=== PATIENT | male | born 1965 | race Caucasian/White ===

== ENCOUNTER 2018-03-11 09:25 | Outpatient (CLI) | payer BC ==
--- NOTE | 2018-03-11 10:59 | Diagnostic Imaging Report ---
Indication: Abdominal pain and distention Technique: Nelson-scale and duplex images of the upper abdomen were obtained Comparison: none Findings: Gallbladder is unremarkable, without stones, wall thickening, nor pericholecystic fluid. Sonographic Stone's sign is negative. Common bile duct measures for mm in diameter. No intrahepatic biliary ductal dilatation. Liver demonstrates diffusely increased echogenicity, consistent with diffuse hepatocellular disease, most likely fatty change. It is somewhat enlarged. Portal vein and hepatic veins are patent. Pancreas is unremarkable. Spleen is unremarkable. Left kidney measures 11.7 cm in length. Right kidney measures 10.5 cm length. Both kidneys demonstrate normal echogenicity. There is no hydronephrosis. Small cysts are seen in the left kidney . Abdominal aorta is partially obscured by bowel gas, visualized portions are non-aneurysmal . Impression: Liver demonstrates diffusely increased echogenicity, consistent with diffuse hepatocellular disease, most likely fatty change. It is also somewhat enlarged Negative for gallstones or dilated ducts Incidental finding small left renal cysts Note nonvisualization of portions of the abdominal aorta
== END 2018-03-11 11:25 | disposition home or self-care (01) ==
LOC: ULS 09:25
DX: R10.84 Generalized abdominal pain (principal); R14.0 Abdominal distension (gaseous); N20.0 Calculus of kidney
CPT/HCPCS: 76700

== ENCOUNTER 2019-06-02 03:28 | Emergency (ER) | payer BC ==
[~2019-06-02] VITALS: Ht 170.2 cm; Wt 93.0 kg
[2019-06-02 03:41] VITALS: BP 150/94
[2019-06-02] MEDS ORDERED: ALBUTEROL2.5 MG/3 M INH (03:41)
--- NOTE | 2019-06-02 03:41 | NUR ---
ED Nurse Note: pt walked in to E/D c/o cough and congestion since last thursday. pt stated he took thera flu. pt stated today at 0300, he coughed up bright red sputum x2. pt stated he has fever of over 101 F on last thursday. pt recently came from [facility] on thursday,. pt is alert x4. VSS
[2019-06-02] MEDS ORDERED: Albuterol/Ipratropium 3ml neb HHN ONE (04:00)
[2019-06-02] MEDS ORDERED: Omnipaue 350mg/ml 100ml vial INJ PRN (04:00)
--- NOTE | 2019-06-02 04:08 | NUR ---
ED Nurse Note: blood sample taken to lab
[2019-06-02 04:16] LABS: BASOPHILS % (AUTO) 1.3 % (0.0-2.0); EOSINOPHILS % (AUTO) 1.5 % (0.0-3.0); HEMOGLOBIN 16.5 G/DL (14.2-18.0); LYMPHOCYTES % (AUTO) 22.3 % (20.0-45.0); MEAN CORPUSCULAR VOLUME 92 FL (80-99); MONOCYTES % (AUTO) 5.7 % (1.0-10.0); NEUTROPHILS % (AUTO) 69.2 % (45.0-75.0); PLATELET COUNT 267 K/UL (150-450); RED BLOOD COUNT 4.98 M/UL (4.70-6.10); RED CELL DISTRIBUTION WIDTH 10.7 % (11.6-14.8); WHITE BLOOD COUNT 11.3 K/UL (4.8-10.8)
[2019-06-02 04:27] LABS: INR 0.9 (0.9-1.1)
[2019-06-02 04:28] LABS: ANION GAP 8 mmol/L (5-15); BLOOD UREA NITROGEN 11 mg/dL (7-18); CALCIUM 9.5 MG/DL (8.5-10.1); CARBON DIOXIDE 25 MMOL/L (21-32); CHLORIDE 104 MMOL/L (98-107); CREATININE 1.1 MG/DL (0.55-1.30); POTASSIUM 4.3 MMOL/L (3.5-5.1); SODIUM 137 MMOL/L (136-145)
[2019-06-02 04:36] LABS: ALANINE AMINOTRANSFERASE 93 U/L (12-78); ALKALINE PHOSPHATASE 68 U/L (46-116); ASPARTATE AMINO TRANSFERASE 31 U/L (15-37); BILIRUBIN,TOTAL 0.4 MG/DL (0.2-1.0)
--- NOTE | 2019-06-02 04:41 | NUR ---
ED Nurse Note: left for CT
--- NOTE | 2019-06-02 05:07 | NUR ---
ED Nurse Note: back from CT
--- NOTE | 2019-06-02 05:21 | Emergency Room Report ---
History of Present Illness General Chief Complaint: Upper Respiratory Illness Source: Patient Present Illness HPI Patient is a 53-year-old male presents after increased hemoptysis. Patient had reportedly had recent travel to [place]. He states he has been smoking more than usual. He stated that he may have had some nosebleeding. He noticed some moderate amount of hemoptysis. He had some subsequent coughing. He denied any hemoptysis with subsequent evidence of coughing. He denies any severe chest pain. He has sick contacts at home with similar type symptoms. He had reportedly been having increased coughing for several weeks. He denies any fever. He thinks he may have walking pneumonia. He reports having some leg discomfort without any significant swelling. Allergies: Coded Allergies: SULFA (SULFONAMIDE ANTIBIOTICS) (Verified Allergy, Unknown, 06/02/19) Patient History Past Medical History: see triage record Reviewed Nursing Documentation: PMH: Agreed; PSxH: Agreed Nursing Documentation-PM Past Medical History: No Stated History Review of Systems All Other Systems: negative except mentioned in HPI Physical Exam Vital Signs Date Time Temp Pulse Resp B/P (MAP) Pulse Ox O2 Delivery O2 Flow Rate FiO2 06/02/19 03:32 98.2 74 16 153/100 (117) 95 Room Air 06/02/19 03:41 98 Sp02 EP Interpretation: reviewed, normal General Appearance: normal inspection, well appearing, no apparent distress, alert Head: atraumatic ENT: normal ENT inspection, hearing grossly normal, normal voice Neck: normal inspection, full range of motion, supple, no bony tend Respiratory: normal inspection, normal breath sounds, no respiratory distress, no retraction, wheezing Cardiovascular #1: regular rate, rhythm, no edema Gastrointestinal: normal inspection, normal bowel sounds, non tender, soft, no guarding, no hernia Genitourinary: no CVA tenderness Musculoskeletal: normal inspection, back normal, normal range of motion Neurologic: normal inspection, alert, oriented x3, responsive, instrument calibrator III-XII nml as tested, motor strength/tone normal, speech normal Psychiatric: normal inspection, judgement/insight normal, mood/affect normal Skin: no rash, other - nasal telangectasia Medical Decision Making Diagnostic Impression: Primary Impression: Anterior epistaxis Additional Impression: Cough with hemoptysis ER Course Patient presented for hemoptysis. Differential diagnosis included but was not limited to viral respiratory infection, coagulopathy bronchitis, pneumonia, pulmonary embolism, pericarditis, asthma, foreign body. Because of complexity of patient's case laboratory tests and imaging studies were ordered. Patient was noted to have some recent travel raising concern for possible pulmonary embolism. CT of the chest was ordered.. This did not show any evidence of pulmonary embolism or aortic dissection or pneumonia. Breathing treatment was ordered to the patient's wheezing which patient declined. Patient was noted to have some slight anterior epistaxis. Patient hemoptysis was not present on further episodes of coughing. Patient appears to be stable for close outpatient follow-up. He was advised to recheck with his primary care physician to return if any worsening of condition or any other concerns. He does not appear to require antibiotics at this time. Labs Test 06/02/19 04:00 White Blood Count 11.3 K/UL (4.8-10.8) Red Blood Count 4.98 M/UL (4.70-6.10) Hemoglobin 16.5 G/DL (14.2-18.0) Hematocrit 46.0 % (42.0-52.0) Mean Corpuscular Volume 92 FL (80-99) Mean Corpuscular Hemoglobin 33.1 PG (27.0-31.0) Mean Corpuscular Hemoglobin Concent 35.9 G/DL (32.0-36.0) Red Cell Distribution Width 10.7 % (11.6-14.8) Platelet Count 267 K/UL (150-450) Mean Platelet Volume 7.0 FL (6.5-10.1) Neutrophils (%) (Auto) 69.2 % (45.0-75.0) Lymphocytes (%) (Auto) 22.3 % (20.0-45.0) Monocytes (%) (Auto) 5.7 % (1.0-10.0) Eosinophils (%) (Auto) 1.5 % (0.0-3.0) Basophils (%) (Auto) 1.3 % (0.0-2.0) Prothrombin Time 9.7 SEC (9.30-11.50) Prothromb Time International Ratio 0.9 (0.9-1.1) Activated Partial Thromboplast Time 28 SEC (23-33) Sodium Level 137 MMOL/L (136-145) Potassium Level 4.3 MMOL/L (3.5-5.1) Chloride Level 104 MMOL/L (98-107) Carbon Dioxide Level 25 MMOL/L (21-32) Anion Gap 8 mmol/L (5-15) Blood Urea Nitrogen 11 mg/dL (7-18) Creatinine 1.1 MG/DL (0.55-1.30) Estimat Glomerular Filtration Rate > 60 mL/min (>60) Glucose Level 111 MG/DL (74-106) Calcium Level 9.5 MG/DL (8.5-10.1) Total Bilirubin 0.4 MG/DL (0.2-1.0) Aspartate Amino Transf (AST/SGOT) 31 U/L (15-37) Alanine Aminotransferase (ALT/SGPT) 93 U/L (12-78) Alkaline Phosphatase 68 U/L (46-116) Pro-B-Type Natriuretic Peptide 14 pg/mL (0-125) Total Protein 7.9 G/DL (6.4-8.2) Albumin 4.0 G/DL (3.4-5.0) Globulin 3.9 g/dL Albumin/Globulin Ratio 1.0 (1.0-2.7) EKG Diagnostic Results Rate: normal Rhythm: NSR ST Segments: no acute changes Last Vital Signs Date Time Temp Pulse Resp B/P (MAP) Pulse Ox O2 Delivery O2 Flow Rate FiO2 06/02/19 03:41 98.2 76 18 150/94 98 Room Air 06/02/19 03:41 98 Status: improved Disposition: HOME, SELF-CARE Condition: Stable Scripts Albuterol Sulfate* (ALBUTEROL SULFATE MDI*) 8.5 Gm Hfa.aer.ad 2 PUFF INH Q6H, #1 EA 0 Refills Prov: Redd Ortega MD 06/02/19 Referrals: NON PHYSICIAN (PCP) Redd Ortega MD Jun 02, 2019 05:21
--- NOTE | 2019-06-02 05:43 | Diagnostic Imaging Report ---
ndication: Shortness of breath one [place] Technique: IV administration nonionic contrast. Spiral acquisitions obtained from the lung bases to the lung apices. Multiplanar and 3-D reconstructions were generated. Total dose length product 854 mGycm. CTDIvol(s) 24 mGy. Dose reduction achieved using automated exposure control Comparison: none Findings: Contrast opacification of pulmonary arteries somewhat suboptimal due to timing. No intraluminal filling defects or other findings to suggest acute pulmonary embolus are identified. No pulmonary arterial dilatation or right ventricular dilatation. No evidence of thoracic aortic aneurysm or dissection. There is common origin of the right brachiocephalic and left common carotid arteries; otherwise normal branching anatomy and caliber of the great neck vessels. The lungs are clear. No infiltrates, effusions, masses, or nodules are demonstrated. The heart size is normal. No pericardial effusion. Unremarkable esophagus. No mediastinal or hilar mass or adenopathy demonstrated. No axillary or chest wall mass or adenopathy. Included upper abdominal anatomy demonstrates diffuse hepatic low-attenuation, consistent with fatty change. Impression: Somewhat limited exam due to suboptimal contrast bolus timing. No gross pulmonary emboli demonstrated No acute abnormality Fatty liver This agrees with the preliminary interpretation provided overnight by [facility] teleradiology service. The CT scanner at [facility] is accredited by the [employer] and the scans are performed using protocols designed to limit radiation exposure to as low as reasonably achievable to attain images of sufficient resolution adequate for diagnostic evaluation.
[2019-06-02] MEDS ORDERED: ALBUTEROL SULF8.5 GM INH (06:01)
[2019-06-02 06:11] VITALS: BP 148/84
--- NOTE | 2019-06-02 06:11 | NUR ---
ER DISCHARGE NOTE: Patient is cleared to be discharged per ERMD, pt is aox4, on room air, with stable vital signs. pt was given dc and prescription instructions, pt was able to verbalize understanding, pt id band and iv site removed without complications. pt is able to ambulate with steady gait. pt took all belongings.
== END 2019-06-02 06:11 | disposition home or self-care (01) ==
LOC: EMR 03:48
DX: R04.2 Hemoptysis (principal); R04.0 Epistaxis; Z88.2 Allergy status to sulfonamides
CPT/HCPCS: 36415; 71275; 80053; 83880; 85025; 85610; 85730; 99284; Q9967; J7620